=== PATIENT | female | born 2000 | race Caucasian/White ===

== ENCOUNTER 2019-01-30 23:30 | Emergency (ER) | payer OTHER ==
[~2019-01-30] VITALS: Ht 182.9 cm; Wt 79.4 kg
[2019-01-31 00:26] VITALS: BP 126/86
--- NOTE | 2019-01-31 00:47 | NUR ---
DR. ALMEAN AT BEDSIDE FOR EVAL, REMOVED BUG IN LEFT EAR AT BEDSIDE.
[2019-01-31] MEDS ORDERED: LIDOCAINE VISCOUS 2% UD 15 ML UDC ONE (00:57)
[2019-01-31] MEDS ORDERED: LIDOCAINE VISCOUS 2% UD 15 ML UDC MM ONE (01:00)
== END 2019-01-31 01:06 | disposition home or self-care (01) ==
LOC: ER 01-31 00:05
DX: T16.2XXA Foreign body in left ear, initial encounter (principal); W45.8XXA Other foreign body or object entering through skin, initial encounter; Y93.89 Activity, other specified; Y92.89 Other specified places as the place of occurrence of the external cause; Y99.8 Other external cause status